=== PATIENT | male | born 1970 ===

== ENCOUNTER 2019-03-08 10:50 | Emergency (ER) | payer BC ==
--- NOTE | 2019-03-08 10:58 | UC ---
Lower Extremity/Ankle HPI - HPI Summary HPI Summary: 48 yo male presents with RIGHT 4th toe pain. He tells me that last night he got up in the middle of the night to urinate and stubbed his right 4th toe on his suitcase wheel that was in the way. Had immediate pain. This morning the toe is swollen, bruised, and painful to ambulate. He has not taken anything OTC for his discomfort. - History of Current Complaint Stated Complaint: TOE INJURY Time Seen by Provider: 03/08/19 10:57 Hx Obtained From: Patient Onset/Duration: Sudden Onset Severity Initially: Moderate Severity Currently: Moderate Pain Intensity: 7 Pain Scale Used: 0-10 Numeric Aggravating Factor(s): Standing, Ambulation Able to Bear Weight: Yes - Allergies/Home Medications Allergies/Adverse Reactions: Allergies Allergy/AdvReac Type Severity Reaction Status Date / Time No Known Allergies Allergy Verified 03/08/19 11:05 PMH/Surg Hx/FS Hx/Imm Hx - Additional Past Medical History Additional PMH: Erectile dysfunction Cardiovascular History: Cardiac Disease Other History Of: Negative For: HIV, Hepatitis B, Hepatitis C, Anticoagulant Therapy - Surgical History Surgical History: Yes Surgery Procedure, Year, and Place: HEART CATH WITH STENTS - Family History Known Family History: Positive: Hypertension, Other - Father Hx of Throat CA Negative: Cardiac Disease - Social History Occupation: Employed Full-time Lives: With Family Alcohol Use: None Substance Use Type: None Smoking Status (MU): Never Smoked Tobacco Review of Systems All Other Systems Reviewed And Are Negative: Yes Constitutional: Positive: Negative Skin: Positive: Negative Respiratory: Positive: Negative Cardiovascular: Positive: Negative Neurovascular: Positive: Negative Musculoskeletal: Positive: Other: - Toe pain Neurological: Positive: Negative Psychological: Positive: Negative Physical Exam - Summary Physical Exam Summary: GENERAL: NAD. WDWN. No pain distress. SKIN: No rashes, sores, lesions, or open wounds. CHEST: No accessory muscle use. Breathing comfortably and in no distress. CV: Pulses intact PT and DP. Cap refill <2seconds MSK: RIGHT 4th toe with mild ecchymosis and edema at distal aspect. FROM, but pain during flexion. No MT TTP. Nail intact. NEURO: Alert. Sensations intact and symmetric B/L LEs PSYCH: Age appropriate behavior. Triage Information Reviewed: Yes Vital Signs: Vital Signs: Temp Pulse Resp BP Pulse Ox 97.7 F 60 14 111/78 98 03/08/19 11:01 03/08/19 11:01 03/08/19 11:01 03/08/19 11:01 03/08/19 11:01 Vital Signs Reviewed: Yes Lower Extremity Course/Dx - Course Course Of Treatment: XR:IMPRESSION: Suggestion of a nondisplaced fracture at the proximal and medial aspect of the proximal middle phalanx of the fourth digit.. Pt's toe was belle taped and post-op shoe applied. Advised to rest, ice, and elevate. F/u with PCP for recheck in 2-3 weeks. - Differential Dx/Diagnosis Provider Diagnosis: Toe fracture Discharge - Sign-Out/Discharge Documenting (check all that apply): Patient Departure All imaging exams completed and their final reports reviewed: Yes - Discharge Plan Condition: Stable Disposition: HOME Patient Education Materials: Toe Fracture (ED) Referrals: Sabina Montesinos MD [Primary Care Provider] - Additional Instructions: If you develop a fever, shortness of breath, chest pain, new or worsening symptoms - please call your PCP or go to the ED immediately. 1) Rest, Ice, and elevate your toe/foot intermittently throughout the day. 2) Use the post-op shoe as needed for comfort 3) Belle tape your toe daily for comfort and stabilization 4) This will likely take 4-6 weeks to heal. The more you are able to rest and avoid strenuous physical activities - the better it should feel. - Billing Disposition and Condition Condition: STABLE Disposition: Home - Attestation Statements Provider Attestation: Per institutional requirements, I have reviewed the chart, however, I was not consulted specifically or made aware of this patient by the midlevel provider. I did not personally evaluate, interact with , or disposition this patient.
[2019-03-08 11:06] VITALS: BP 111/78
== END 2019-03-08 11:51 | disposition home or self-care (01) ==
LOC: UCEAST 10:50
DX: S92.514A Nondisplaced fracture of proximal phalanx of right lesser toe(s), initial encounter for closed fracture (principal); W22.8XXA Striking against or struck by other objects, initial encounter; Y92.013 Bedroom of single-family (private) house as the place of occurrence of the external cause
CPT/HCPCS: 99212; G0463